=== PATIENT | male | born 1955 | race Two or more races ===

== ENCOUNTER 2016-11-19 17:13 | Emergency (ER) | payer OTHER ==
[2016-11-19 17:57] LABS: BASO # 0.1 K/mm3 (0.0-0.2); BASO % 0.5 % (0.2-1.0); EOS # 0.1 (0.0-0.5); EOS % 0.8 % (0.9-2.9); HEMATOCRIT 39.6 % (32.0-52.0); HEMOGLOBIN 13.4 gm/l (14.0-18.0); IMM NEUT% 0.2 % (0-1); LYMPH # 3.4 (1.0-4.8); LYMPH % 30.6 % (15-45); MEAN CELL VOLUME 85.7 fl (80.0-94.0); MEAN CORPUSCULAR HGB CONC 33.8 g/dl (33.0-37.0); MEAN PLATELET VOLUME 11.1 fl (7.4-10.4); MONO # 0.5 (0.0-0.8); MONO % 4.5 % (4-12); NEUT % 63.4 % (43-75); PLATELET COUNT 210 K/mm3 (130-400); RED CELL DISTRIBUTION WIDTH 13.2 % (11.5-14.5)
[2016-11-19 18:37] LABS: ALB/GLOB RATIO 1.4 (>1.0); ALBUMIN 4.4 gm/dL (3.5-5.7); CALCIUM 8.9 mg/dL (8.6-10.3)
[2016-11-19 18:40] LABS: TROPONIN I < 0.01 ng/ml (0.0-0.06)
--- NOTE | 2016-11-19 20:17 | RAD ---
Exam: Two-view chest COMPARISON: 01/26/2006 INDICATION: Dizziness and chest pain. FINDINGS: PA and lateral views of the chest were obtained. Cardiac silhouette is within normal limits. Lungs are well-inflated. There is no focal airspace disease or pleural effusion. Bones of the chest wall within normal limits. IMPRESSION: Negative two-view chest.
== END 2016-11-19 20:36 | disposition home or self-care (01) ==
LOC: ED 17:13
DX: R42 Dizziness and giddiness (principal); I10 Essential (primary) hypertension; N28.9 Disorder of kidney and ureter, unspecified

== ENCOUNTER 2017-01-24 10:32 | Emergency (ER) | payer OTHER ==
[2017-01-24 11:11] LABS: BASO # 0.1 K/mm3 (0.0-0.2); BASO % 0.5 % (0.2-1.0); EOS # 0.3 (0.0-0.5); EOS % 2.7 % (0.9-2.9); HEMATOCRIT 40.4 % (32.0-52.0); HEMOGLOBIN 13.6 gm/l (14.0-18.0); IMM NEUT% 0.3 % (0-1); LYMPH # 4.2 (1.0-4.8); LYMPH % 40.8 % (15-45); MEAN CELL VOLUME 85.2 fl (80.0-94.0); MEAN CORPUSCULAR HEMOGLOBIN 28.7 pg (27.0-31.0); MEAN CORPUSCULAR HGB CONC 33.7 g/dl (33.0-37.0); MEAN PLATELET VOLUME 11.2 fl (7.4-10.4); MONO # 0.7 (0.0-0.8); MONO % 6.9 % (4-12); NEUT % 48.8 % (43-75); PLATELET COUNT 200 K/mm3 (130-400); RED CELL DISTRIBUTION WIDTH 13.3 % (11.5-14.5)
[2017-01-24] MEDS ORDERED: ASPIRIN (ENTERIC COATED) 81 MG TABLET.EC ONE (11:12)
[2017-01-24] MEDS ORDERED: ASPIRIN CHEWTAB 81 MG TABLET ONE (11:14)
[2017-01-24 11:19] LABS: ALB/GLOB RATIO 1.3 (>1.0); ALBUMIN 4.2 gm/dL (3.5-5.7); CALCIUM 9.6 mg/dL (8.6-10.3)
[2017-01-24 11:22] LABS: TROPONIN I 0.02 ng/ml (0.0-0.06)
[2017-01-24 11:31] LABS: THYROID STIMULATING HORMONE 0.82 uIU/ml (0.34-5.60)
[2017-01-24] MEDS ORDERED: DIPHTH,PERTUSS(ACELL),TET VAC 0.5 ML VIAL IM V ONE (13:12)
--- NOTE | 2017-01-24 16:48 | NUC MED ---
CARDIAC STRESS MULTIPLE STUDY HISTORY: Dyspnea on exertion. COMPARISONS: None. PROCEDURE: At rest 11.7 mCi of technetium 99 labeled sestamibi was administered. The patient was stressed by Pepito protocol, achieving METs of 4.6. The patient's heart rate katelin to 142 bpm, 89% of the target heart rate. Following stress and additional 37.0 mCi technetium 99 labeled sestamibi was administered. SPECT imaging was performed. FINDINGS: Images demonstrate a relatively symmetric uptake within the myocardial wall on both rest and stress images. No significant fixed or reversible defects are identified. The wall motion is appropriate with no areas of akinetic or dyskinetic activity seen. The left ventricular ejection fraction is normal, measured at 67%. IMPRESSION: 1. A negative nuclear medicine Myoview study with a left ventricular ejection fraction measured at 67%.
== END 2017-01-24 17:28 | disposition home or self-care (01) ==
LOC: ED 10:32
DX: R07.9 Chest pain, unspecified (principal); K21.9 Gastro-esophageal reflux disease without esophagitis; I10 Essential (primary) hypertension; Z23 Encounter for immunization
CPT/HCPCS: 90715; 85025; 82550; 82553; 80053; 84443; 84484 ×2; 78452; 99284 ×2; 93017 ×2; 93005; A9270 ×2; A9500